=== PATIENT | female | born 1990 | race Caucasian/White ===

== ENCOUNTER 2018-04-17 06:06 | Emergency (ER) | payer MEDICAID ==
[~2018-04-17] VITALS: Ht 149.9 cm; Wt 36.3 kg
[2018-04-17 06:17] VITALS: BP 114/67
[2018-04-17] MEDS ORDERED: NACL 0.9% 1,000 ML IV ONE (06:24)
[2018-04-17] MEDS ORDERED: KETOROLAC 30 MG/ML VIAL IVP ONE (06:25)
[2018-04-17 06:58] LABS: BASOPHILS % (AUTO) 0.4 % (0.0-2.0); EOSINOPHILS # (AUTO) 0.1 K/uL (0-0.4); HEMATOCRIT 38.6 % (36-48); HEMOGLOBIN 12.4 g/dL (12.0-16.0); LYMPHOCYTES # (AUTO) 1.9 K/uL (2.5-16.5); LYMPHOCYTES % (AUTO) 31.1 % (20.5-51.1); MEAN CORPUSCULAR HEMOGLOBIN 27 pg (27-31); MEAN CORPUSCULAR HGB CONC 32 g/dL (33-37); MEAN CORPUSCULAR VOLUME 83.2 fL (80-94); MONOCYTES # (AUTO) 0.6 K/uL (0.8-1.0); MONOCYTES % (AUTO) 9.7 % (1.7-9.3); NEUTROPHILS # (AUTO) 3.5 K/uL (1.8-7.7); NEUTROPHILS % (AUTO) 56.8 % (42.2-75.2); PLATELET COUNT (AUTO) 233 K/uL (140-450); RED BLOOD CELL COUNT(AUTO) 4.64 MIL/uL (4.20-5.40); RED CELL DISTRIBUTION WIDTH 15.4 % (11.6-13.7); WHITE BLOOD COUNT (AUTO) 6.2 K/uL (4.8-10.8)
[2018-04-17 07:16] LABS: ANION GAP 14.5 (8-16); CARBON DIOXIDE 26.4 mmol/L (21-32); POTASSIUM 3.9 mmol/L (3.5-5.1)
[2018-04-17 07:17] LABS: CREATININE 0.7 mg/dL (0.6-1.3)
[2018-04-17 07:42] LABS: ALBUMIN 4.1 g/dL (3.4-5.0); TOTAL BILIRUBIN 0.2 mg/dL (0.0-1.0)
[2018-04-17 09:26] VITALS: BP 110/60
== END 2018-04-17 09:25 | disposition home or self-care (01) ==
LOC: MED 06:06
DX: N83.201 Unspecified ovarian cyst, right side (principal)
CPT/HCPCS: 36415; 76705; 76830; 80053; 81002; 81025; 85025; 93976; 96374; 99284; J1885; J7030; Q0092